=== PATIENT | male | born 1965 | race Hispanic/Latino ===

== ENCOUNTER 2019-10-25 13:00 | Outpatient (AMB) | payer MEDICAID, SELFPAY ==
[2019-10-25 13:00] VITALS: BMI 18.8
--- NOTE | 2019-10-25 13:00 | CWCCLIPHA ---
Review of Systems Const Constitutional: Reports difficulty sleeping and Reports lethargy GI Gastrointestinal: Reports constipation, Reports nausea and Reports vomiting Comments: Excessive and thick saliva Psych Psychiatric: Reports hopelessness Exam Const Orientation: alert Neuro General: patient alert Cognition: normal cognition Speech: speech normal Supplemental Info Assessment & Plan 1. Chronic pain. Uncontrolled. Likely lumbar-sacral disc disease as identified in 2018 MRI and referred pain from abdominal lymph node involvement per [facility] report. PET on 10/26/19 showed no hypermetabolic areas with mild- moderate ascites. Patient has been on short acting opioids for 3 months with minimal relief. Unclear if patient is able to effectively use numeric pain scale, however, patient's QOL is severely limited by pain by subjective reports of hopelessness, inability to sleep and bedridden status. Fentanyl patches on hand but not initiated due to lack of counseling on use, role in therapy and administration. Patient to start Fentanyl today. Administration, role in therapy, safety, expectations for OOA and DOA discussed with . Plan to follow-up in 7-10 days after patient has reached peak therapeutic effect. 2. Constipation. Evaluation deferred. Will assess via telephone in 7-10 days with contributions of Fentanyl NICHO. 3. Nausea and Vomiting. Evaluation deferred. Clinical Pharmacist Assessment Consultation Type Referral Source: Inital Visit Program Patient eligibility programs: 2.7 Palliative Care Health Conditions Health Conditions: Gastric cancer s/p resection J-tube status Chronic pain IDT Present IDT Present: MD Mery Huber, YAMILA Monge MSW Family/Police Commanding Officer(s) present Family/Caregiver (s) present: , Enriqueta Patients stated concerns Patient's stated concerns: Uncontrolled pain Difficulty sleeping Low energy level Subjective notes Subjective Narrative: Chetan is a 54 YO Croatian speaking M on a teleconference today for an Initial Palliative Care Encounter. His , Enriqueta, contributes most to the discussion. PharmD was requested to consult for uncontrolled pain. Per patient, he is experiencing a low back bone burning sensation that he rates 10/10. He states the pain radiates to his entire back. He states he has had back pain for 2 years, but it is worse now. 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 The patient states he does not feel pain in his stomach. He has both [place] and Oxy IR which provide only 2% relief in his pain and effective for only 4-5 days at a time. He states he takes 2 x Oxy IR 5mg and only gets relief for 30-60 minutes. He states he takes the Oxy IR at night and [place] 10mg Q6H during the day and has been on this regimen since August 12. His states he is essentially bedridden due to pain, and that he is stoic and tries to hold it in. He states he is feeling hopeless. He states his pain is improved by medications or laying in bed and worsens when moving positions or walking. He states his pain is around the clock and interferes with his sleep. He states he is able to sleep 30-60 minutes at a time and then spends 2-3 hours awake. He states he sleeps in a sitting position. His expresses concern about who will continue his pain medications. She states the patient has a PET scan tomorrow (10/26/19). She states the patient has a J-tube and is on Diabetic Source with an enteral pump overnight. She states his is NPO at this time. She states he has nausea in the morning and evening and his thick and excessive saliva that he vomits. She states he had Home Health at one time but it was discontinued after he was hospitalized the 2nd time and expresses concern on who will re-start it. She states the patient has constipation with up to 3 days between bowel movements but has a prescription, a liquid and suppositories at home. She states the patient is on pantoprazole which seems to help with the constipation. She states she picked up the Rx for Fentanyl Dr. Durbin ordered, but she forgot they had it and the patient has not started it. She expresses concerns that he is having pain in his back when they were told he has cancer in his stomach. She expresses concerns that they have not been fully informed on the patient's health, testing, plan and prognosis. She states [facility] advised the patient has 6-12 months to live and she is unhappy with that. Medication and Supplements Medication and Supplements: H/APAP 10/325 1 Q6H Oxy IR 5mg 2 T QID Pantoprazole *CWC Office Visit complete CWC Offive Visit Complete CWC Visit Complete?: No
--- NOTE | 2019-10-29 10:02 | PR.OPPALCARP ---
Vital Signs 10/25/19 13:00 Height 1.75 m Height Method Stated Weight 58.06 kg Weight Measurement Method Stated by Patient BMI 18.8 Oxygen Delivery Method Room Air Comment Pain level is 10/10; Dr. Durbin is aware OP Palliative Care List Name, Facility and location of PCP: [facility]; ZAN Mojica; [address] Review of symptoms: Pain, redness around the tube site, constipation, nausea, vomiting, poor sleep, poor energy level How would you rate your diet: Poor Do you have any of the following that interfere w/eating: Constipation, Nausea and Vomiting Misc Comments: Called at 1:01 pm; Called Dr. Durbin at 2:42 pm; Conference call ended 2:53 pm Email address: [email or web address] Telephone conference call was done due to no face to face appointments occurring at this time. Patient goes to [facility] [address] and sees ZAN Mojica. Patient uses [facility] in [place]. Last appointment with the patient?s doctor was yesterday (10/24/2019) and the last blood work was completed 1 month ago. Patient?s past medical history includes: Diabetes type 2, Peptic ulcer disease, Tameka en y and J tube placement in [facility] on 08/13/2019. Patient has no known allergies. Patient has not had any treatment that had started but will be starting soon with Dr. Bradley. Patient stated that his weight is 128 pounds and is 5?9?. Patient stated that prior to cancer diagnosis that he weighed 180 pounds. Patient is on room air. Patient reported pain is 10 out of 10 to the back and specifically to the lower back in the bones. Patient reported the following medications: metoclopramide, G[place]on 10-325 mg, Oxycodone 5 mg, Pantoprazole, Fentanyl 25 mcg, Tylenol 500 mg, Eliquis 2.5 mg, ondansetron 4 mg, gabapentin, Senna. Verbal head to toe assessment was completed with patient over the phone. Patient has no shortness of breath or cough. Patient does not have any skin issues or swelling. Patient does have a J tube which the patient?s , Enriqueta, changes the dressing every day. Patient?s stated that there is redness around the tube and that there is a piece of skin that is coming out. Enriqueta also stated that that piece of skin is getting bigger and that there are secretions with yellowish color. ZAN Miramontes, was made aware of the issue but that he stated to contact the oncologist and Dr. Durbin regarding the issue. Prognosis: Fair Co-Morbitities: Cancer List Name, Facility and location of PCP: [facility]; ZAN Mojica; [address] Patient Diagnosis: Stage 4 gastric cancer Prognosis: Fair Care Conf Coordinator: Mery Cheng date/time/location: 10/25/2019 at 1 pm in the [facility] conference room on the conference phone Patient Diagnosis: Stage 4 gastric cancer Purpose of meeting: Palliative care initial appointment/symptom management Participants in meeting and relationship: Chetan Thomas, Patient Enriqueta, of the patient Lelo Moore Monge, SKIP PIT WORKER Mery Chanel, RN Nora Dickens, PharmD Dr. Deep Durbin joined conference call at the end of the discussion with the patient. How are patients wishes known: Patient cognitive/verbal Who is the decision maker for the patient: Patient Issues addressed: Pain, redness around the tube site, constipation, nausea, vomiting, poor sleep, poor energy level Discussion/Outcomes/Follow-up: Lelo provided translation during the discussion. Patient?s , Enriqueta, stated that after his surgery that the patient was told that he no longer has a stomach and was only using the tube only. Then they were told that he could eat a little bit. The patient tried eating a little bit of soup and that there was burning and pain. Patient does report nausea and vomiting. Patient stated that he is nauseated all day and night. Enriqueta also stated that he has thick saliva that he spits out. Patient also vomits thick saliva. Patient states that they use Diabetic source 5- 6 cartons during the night. Patient states that he deals with constipation and had a last bowel movement of this morning. Patient reports having a bowel movement every 3 days and that he uses suppositories. Patient states that he does not sleep well due to the pain. Patient will sleep on and then off again. Patient has to be in almost a standing/sitting position and uses pillows to be positioned. Enriqueta states that the patient is restless. Patient reported to sleep for 30 minutes to an hour and then is awake for 2-3 hours but that the patient tries to sleep again. Patient has very poor energy. Patient will walk around the house sometimes and he is just in bed at other times. Patient does to bed at 6 pm because of being connected to the feeding pump. Enriqueta stated that the patient has an appointment on tomorrow (10/26/2019) for a PET scan and an appointment on 11/07/2019 for cath placement. At the end of the discussion, the had asked if there was any way that Dr. Durbin would be able to write a letter to send in while appealing disability stating the following: diagnosis, prognosis, how the pain is affecting the patient?s life and that the patient cannot work due to the cancer diagnosis. Will make Dr. Durbin aware of the need for letter to appeal disability. Communication to other healthcare professionals: Made Dr. Durbin aware of the patient?s issues. Please see MS LeloW, and Nora, PharmD, notes for their recommendations for Dr. Durbin. Symptom management recommnedations: See discussion Tenative date for F/U Patient family meeting: November 2019 List Name, Facility and location of PCP: [facility]; ZAN Mojica; [address] *CWC Office Visit complete CWC Offive Visit Complete CWC Visit Complete?: No
--- NOTE | 2019-11-01 09:14 | PR.OPPALCARP ---
Vital Signs 10/25/19 13:00 Height 1.75 m Height Method Stated Weight 58.06 kg Weight Measurement Method Stated by Patient BMI 18.8 Oxygen Delivery Method Room Air Comment Pain level is 10/10; Dr. Durbin is aware OP Palliative Care List Name, Facility and location of PCP: [facility] Network: Matthias Miramontes PA-C [address] [place] [address] Patient would like more on Advance Directive: Yes Prognosis: Fair Advanced Care plan discussed: Yes Who patient wants involved in care decisions: Patient mentioned that in the event that patient is impaired or unresponsive to make medical decisions for himself, he has named his , Enriqueta Gonzalez, as his primary medical decision maker. Primary Medical Surrogate Decision Maker?: Yes Existing Advance Directive: No POLST Form: No Primary Caregiver: Enriqueta Gonzalez . Caregivers phone number: [phone] Caregivers address: [address] [place] [address] List Name, Facility and location of PCP: [facility] Network: Matthias Miramontes PA-C [address] [place] [address] Patient Diagnosis: Malignant Neoplasm of Stomach, unspecified. Disease onset date: 08/13/19 Prognosis: Fair Current goal of care: Life-prolonging Mental Status: Alert and Oriented Coping Status: Coping w/some difficulty Emotional Status: Ordinary Learning needs: Motivational Home situation: Patient resides at home with his , Enriqueta, and a teenage daughter and son. Support System: Good Financial Status: [facility] Conf Coordinator: Lelo Cheng date/time/location: On 10/25/2019, patient's initial Palliative Care meeting was in [facility] Conference Room at 1304. Patient Diagnosis: Malignant Neoplasm of Stomach, unspecified. Purpose of meeting: Initial Palliative Care Meeting/Symptoms Management Participants in meeting and relationship: Chetan Thomas, patient Enriqueta Gonzalez, Nora Dickens, Pharmacist YAMILA Frederick, VENUE COORDINATOR How are patients wishes known: Patient cognitive/verbal Who is the decision maker for the patient: Patient Issues addressed: Pain Management Low Energy ADVDIR Home Health Lack of Appetite J-Tube Care Sleep Disturbance Discussion/Outcomes/Follow-up: This is 54 year-old , male, who presented to his initial Palliative Care meeting via telephone conference. Involved in the conversation was patient and his , Enriqueta Gonzalez; Oncologist, Dr. Durbin; Palliative Care Registered Nurse, Mery; Pharmacist, Nora; and covering Dental Front Office Assistant, Lelo. UMAIR, Lelo Monge, translated conversation; it was noted and explained that UMAIR is not a Tunisian certified medical office receptionist assistant. Patient and were agreeable to speak to social work case manager. On August 08, 2019, patient underwent CT studies at [facility], which indicated antral gastritis and active peptic disease pyloric channel and duodenal bulb. During his admission at [facility], he was transferred to [facility] for the removal of gastric mass; in addition, he was treated with adjuvant therapy. Patient has a J-Tube. Per , during his last admission to [facility] in September, patient was informed by Dr. Trevino that he had 6 months to a year of life. [facility]. Patient is scheduled to have a PET scan on 10/26/2019 and catheter placement will take place on 11/07/2019. At this time, patient is concerned with skin that has been surrounding the J-Tube with yellow secretions. Per patient?s , she attempted to talk to patient?s PCP, Matthias Miramontes PA-C, but was informed that the J-tube should be overseen by his oncologist, Dr. Durbin or Dr. Bradley. Patient was receiving home health by [facility] ( ). Per , patient used to attend Dr. Altamirano for GI issues, and was always informed that patient had peptic ulcer disease, and was never provided with further studies until patient became significantly ill. Patient is now a total care and his is provided all emotional and medical care. Patient refuses to use any type of medical appointment clerk due to his pride. Patient reports that he does not want to be seen as weak. Patient?s believes that he can benefit from a walker with a seat, but she would have to check with him. Patient did request a cane, and it was granted through the Palliative Care. Patient reports his appetite is horrible after having most of his stomach removed. He is not able to eat solid foods or drink fluids because he feels a burning sensation. Patient used to weigh 180 pounds prior to having the surgery. He now weighs 128 pounds. Patient?s is fearful of limiting his food intake due to not having the correct education to continue with feedings. RD will speak to patient?s to provide education. Patient also reports that his sleep is poor; he does not sleep in the night. Patient reports that his pain level is at a 10. Patient has to sleep with pillows under his body due to his pain location which is in his back. Pharmacist will speak to patient regarding pain management. Patient reports having no energy due to feeling so much pain. Patient reports that he is mainly bed bound. Patient continues to reside with , Enriqueta, and two teenage children; his daughter is [id number], and his son, [id number]. Patient has been to [place] for seven years. Dental Front Office Assistant took the impression that patient was previously due to patient?s stating that he owes 339 dollars, per month, in child support. 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 Per , they had 13 kids in total under their care, before being diagnosed with gastric cancer. Patient is currently not receiving any disability benefits due to being denied. 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 Patient is in the process of appealing the verdict. Patient is afraid of their financial situation due to having to quit the day care in order to take care of him. Per , she is currently receiving 167 dollars from unemployment benefits, plus 600 dollars per week in COVID-19 benefits through unemployment agency. However, those extra 600 dollars will be stopped soon. Enriqueta requested a letter from Dr. Durbin stating patient?s current medical condition to have strong evidence for appeal case. Patient?s , Enriqueta is currently transporting him to all his appointments. This social work case manager was not able to assess patient?s mentation in person due to follow-up meeting was via telephone. Patient was awake, alert and oriented. Patient was responsive and receptive to the information being provided to him. Patient?s speech was within normal levels. Patient?s attitude was pleasant and cooperative. Patient?s behavior was unremarkable. Patient?s mood was euthymic and within normal limits. Patient reported that he felt sad due to moving to a different state. Patient?s thought, cognition, and judgement process was logical. Patient denies having suicidal or homicidal ideation. Patient denies having any mental health history or receiving treatment. Patient denies using any type of drugs, alcohol or nicotine use. Patient reports that he has a lot patience, but when he feels pain or sadness, he likes to be alone in his room, prefers not to see people so he can pray. However, when patient feels better, he enjoys watching television, talking to family and friends, and praying. Patient?s confucianist preference is Catholicism. Usually, patient?s is in charge of speaking to family regarding news of patient?s health. Dental Front Office Assistant introduced patient to the idea of completing an Advanced Directive and POLST. Patient is not interested at this time. However, he did mention that in the event that patient is impaired or unresponsive to make medical decisions for himself, he has named his , Enriqueta Gonzalez, as his primary medical decision maker. It was noted to patient that if he wants to complete the ADVDIR at any time, social media editor is willing to assist. Advanced Directive: No POLST Form: No Primary Medical Surrogate Decision Maker?: Yes List Name, Facility and location of PCP: [facility] Network: Matthias Miramontes PA-C [address] [place] [address] *CWC Office Visit complete CWC Offive Visit Complete CWC Visit Complete?: No
--- NOTE | 2019-11-05 14:30 | AM.PHNO ---
Nursing Note Called and s/w patient's , Enriqueta, using [facility]. states she just dropped of patient at ED due to NV and bleeding to the J-tube site. She states the patient is very weak and has lost 5 lb in the last week. She states he is scheduled to receive his IV catheter for chemo Tuesday. She states his pain is uncontrolled. She states the patient experienced intolerable nausea and dizziness after wearing the Fentanyl patch for 1 day, so the removed it. She states she attempted to have the patient seen at [facility] and was re-directed to ED but was given an Rx for oxycodone by Dr. Durbin. She expresses concern about his current ability to tolerate chemo, their lack of information regarding XRT plan, chemo plan, prognosis and statements from friends that they expect he won't last long after chemo is started. She states he is very weak being only on J-tube feedings. By request, PharmD discussed the PET report, including no evidence of obvious hypermetabolic activity in the spine or elsewhere but that the patient has known malignant areas in the abdomen per [facility] operative reports. Advised that PharmD will request Bailey Love to contact her regarding her chemo questions. Advised PharmD will follow ED notes and discuss pain management, NV management options with Dr. Durbin and follow-up with her. Advised PharmD is unaware for plans for XRT. Patient is currently on Oxy IR 5mg Q6H (30 MME/day) with little relief. LA options limited due to NPO status. Likely need to increase Oxy IR dose and/or switch to MSO4 drops and add antiemetic. Consider re-trying Fentanyl after patient reaches 60 MME x 7 days. Consider Zofran liquid via G-tube; patient has a fill of Zofran ODT in past - need to evaluate efficacy. *CWC Office Visit complete CWC Offive Visit Complete CWC Visit Complete?: Yes
== END 2019-10-25 14:26 | disposition home or self-care (01) ==
LOC: HODCWC 13:19
PROVIDERS: PCP Radiology Therapeutic Radiology; Referring Provider Radiology Therapeutic Radiology; Visit Provider Radiology Therapeutic Radiology
DX: Z51.5 Encounter for palliative care (principal); C16.9 Malignant neoplasm of stomach, unspecified